=== PATIENT | female | born 1965 | race Caucasian/White ===

== ENCOUNTER 2022-12-09 10:18 | Day surgery (SDC) | payer OTHER ==
[~2022-12-09] VITALS: Ht 170.2 cm; Wt 123.6 kg
[~2022-12-09 10:18] MED LIST: ALLEGRA ALLERG180 M1 PO; CETI10 PO; CITA20 PO; FEXO60 PO; IBUP600 PO; LAMO25 PO; LEVSOD200 PO; MULVITMIND PO; NAPR220 PO; OMEP20ER PO; PANT40; Prilosec Otc20 MG; SYNTHROID0.2 MG PO
[2022-12-09] MEDS ORDERED: CETI5 (10:33)
[2022-12-09 13:18] VITALS: BP 117/68
--- NOTE | 2022-12-09 13:19 | NUR ---
12/09/22 1319 Julissa Holder IV REMOVED AT 1250, WNL. PT TOLERATED IV DC WELL.
== END 2022-12-09 13:00 | disposition home or self-care (01) ==
LOC: ORSCSDS 10:18
PROVIDERS: Internal Medicine Gastroenterology
PROC: 0DB78ZX Excision of Stomach, Pylorus, Via Natural or Artificial Opening Endoscopic, Diagnostic (ICD-10-PCS; principal; 2022-12-09 11:30)
PROC: 0DB58ZX Excision of Esophagus, Via Natural or Artificial Opening Endoscopic, Diagnostic (ICD-10-PCS; principal; 2022-12-09 11:30)
DX: K22.70 Barrett's esophagus without dysplasia (principal); K21.9 Gastro-esophageal reflux disease without esophagitis; E66.01 Morbid (severe) obesity due to excess calories; Z68.41 Body mass index [BMI] 40.0-44.9, adult; Z79.899 Other long term (current) drug therapy; Z87.891 Personal history of nicotine dependence
CPT/HCPCS: 88305; 88312; 88342; J2704; J7120

== ENCOUNTER → 2023-12-23 | Outpatient (CLI) | payer OTHER ==
[~2023-12-23] MED LIST changes: +CETI5
== END ==
LOC: LAB 16:33 → LAB SHORT 16:33
DX: N39.0 Urinary tract infection, site not specified (principal)
CPT/HCPCS: 87077; 87086; 87186